=== PATIENT | male | born 1960 | race Caucasian/White ===

== ENCOUNTER → 2024-11-05 | Outpatient (CLI) | payer OTHER, SELFPAY ==
--- NOTE | 2024-11-05 06:06 | DI.ECHO.S_ITS ---
Version: 1 Study ID: [id number] [place] [id number] Name: TANESHA BLACKWELL Study Date: 11/05/2024, 6: 19 AM : 1960 BP: 135 / 85 mmHg Gender: Male Height: 72 in Age: 64 Years Weight: 290 lb BSA: 2.49 mA? Ordering: ANUSHA MACKEY Referring: ANUSHA MACKEY PA-C Clinician: Sydney Garrison Reason For Study: RAPID HEARTBEAT History: Summary Statements The left ventricle is normal in size. The ejection fraction is estimated to be 60-65%. Left ventricular wall motion is normal. Diastolic parameters suggest a relaxation abnormality of the left ventricle, consistent with probable normal filling pressures. The right ventricle is normal in size and function. Borderline left atrial enlargement. There is no significant valvular heart disease. Pulmonary artery pressures cannot be estimated because of the lack of a measurable TR jet velocity. The IVC is of normal diameter and collapses greater than 50% with a sniff. This suggests a low right atrial pressure of 3 mm Hg. Procedure: A two-dimensional transthoracic echocardiogram with color flow and Doppler was performed. The study quality was technically adequate. There is no prior echocardiogram noted for this patient. The patient was in sinus bradycardia with heart rates between 50-56 bpm during the exam. Left Ventricle: The left ventricle is normal in size. Left ventricular wall thickness is mildly increased. The ejection fraction is estimated to be 60-65%. Left ventricular wall motion is normal. Diastolic parameters suggest a relaxation abnormality of the left ventricle, consistent with probable normal filling pressures. Right Ventricle: The right ventricle is normal in size and function. Atria: Borderline left atrial enlargement. Right atrial size is normal. There is no Doppler evidence for an interatrial shunt. Mitral Valve: The mitral valve leaflets appear to open well. There is no evidence of mitral valve prolapse. There is trace mitral regurgitation. Aortic Valve: The aortic valve is trileaflet. The aortic valve opens well. There is no aortic valve stenosis. Tricuspid Valve: The tricuspid valve leaflets are thin and pliable. There is trace tricuspid regurgitation. Pulmonary artery pressures cannot be estimated because of the lack of a measurable TR jet velocity. Pulmonic Valve: The pulmonic valve leaflets are thin and pliable; valve motion is normal. There is no pulmonic valvular regurgitation. There is no significant valvular heart disease. Great Vessels: The aortic root is normal size. The ascending aorta is mildly enlarged. The IVC is of normal diameter and collapses greater than 50% with a sniff. This suggests a low right atrial pressure of 3 mm Hg. Pericardium/ Pleura: There is no pericardial effusion. There is no pleural effusion. 2D and M-Mode Measurements and Calculations LVIDd: 4.3 cm AoV Openin.21 cm LVIDs: 2.5 cm LVOT diam: 2.21 cm IVSd: 1.16 cm Ao root diam: 3.1 cm LVPWd: 0.98 cm asc Aorta Diam: 3.6 cm LV betts. diameter/BSA (cm/m^2): 1.73 Ao Arch Diam (Prox Trans): 3.6 cm LV sys. diameter/BSA (cm/m^2): 1.01 RVD1 (basal): 3.9 cm RVD2 (mid): 3.6 cm TAPSE: 2.17 cm LA A4 area: 22.8 insurance actuary? IVC diam: 1.14 cm LA A2 area: 25.3 insurance actuary? RA area: 21.1 insurance actuary? LA length (vol): 6.0 cm RA long axis: 5.9 cm LA vol: 81.3 ml RA vol: 63.8 ml LA vol index: 32.6 ml/mA? RA : 25.6 ml/mA? Doppler Measurements and Calculations Ao V2 max: 138.4 cm/sec LVOT Max José Antonio: 107.4 cm/sec Ao V2 mean: 96.7 cm/sec LV V1 max P.6 mmHg Ao V2 VTI: 28.7 cm LV V1 VTI: 25.7 cm Ao max P.7 mmHg SV(LVOT): 98.3 ml Ao mean P.1 mmHg ROBERT(I,D): 3.4 insurance actuary? ROBERT(V,D): 3.0 insurance actuary? ROBERT indexed to BSA (cm^2/m^2): 1.37 sev ratio: 0.89 MV E max josé antonio: 83.1 cm/sec MV dec time: 0.22 sec MV A max josé antonio: 100.3 cm/sec MV E/A: 0.83 Med Peak E' José Antonio: 7.2 cm/sec Lat Peak E' José Antonio: 12.1 cm/sec E/e' average: 9.2 PA V2 max: 114.6 cm/sec PA mean P.6 mmHg Electronically signed by: David Farias 11/05/2024, 8: 21 AM
== END ==
PROVIDERS: Referring Provider Physician Assistant; Visit Provider Physician Assistant
DX: R00.0 Tachycardia, unspecified (principal)
CPT/HCPCS: 93306